=== PATIENT | female | born 1995 | race Caucasian/White ===

== ENCOUNTER 2017-05-13 07:41 | Emergency (ER) | payer SELFPAY ==
[~2017-05-13] VITALS: Ht 175.3 cm; Wt 158.8 kg
[2017-05-13] MEDS ORDERED: ONDANSETRON HCL 4 MG ORAL DISINTEGRATING TAB PO ONE (08:15)
[2017-05-13] MEDS ORDERED: DEXAMETHASONE SOD PHOS 10 MG/1 ML VIAL INJ ONE (08:15)
[2017-05-13] MEDS ORDERED: KETOROLAC TROMETHAMINE 60 MG/2 ML VIAL IM ONE (08:15)
== END 2017-05-13 09:40 | disposition home or self-care (01) ==
LOC: FSED 07:41
DX: M25.551 Pain in right hip (principal); M79.651 Pain in right thigh; M54.31 Sciatica, right side; M51.86 Other intervertebral disc disorders, lumbar region
CPT/HCPCS: 99282; J1100; J1885